=== PATIENT | female | born 1980 | race Caucasian/White ===

== ENCOUNTER 2023-02-27 15:02 | Emergency (ER) | payer BC, OTHER ==
[~2023-02-27] VITALS: Ht 162.6 cm; Wt 81.6 kg
[2023-02-27 15:08] VITALS: BP_SYST 152
[2023-02-27] MEDS ORDERED: KETOROLAC TROMETHAMINE 60 MG/2 ML VIAL IM ONE (15:15)
[2023-02-27] MEDS ORDERED: NAPR-1172 PO (16:42)
[2023-02-27 16:45] VITALS: BP_SYST 122
== END 2023-02-27 16:45 | disposition home or self-care (01) ==
LOC: SED 15:02
DX: G43.909 Migraine, unspecified, not intractable, without status migrainosus (principal); R11.0 Nausea; J45.909 Unspecified asthma, uncomplicated; E11.9 Type 2 diabetes mellitus without complications; I10 Essential (primary) hypertension; Z88.5 Allergy status to narcotic agent; Z88.8 Allergy status to other drugs, medicaments and biological substances; Z79.899 Other long term (current) drug therapy
CPT/HCPCS: 99285; 70486; 76376; 81025; 96372; J1885